=== PATIENT | female | born 1970 | race Caucasian/White ===

== ENCOUNTER 2017-08-22 17:16 | Inpatient (IN) | payer OTHER ==
[2017-08-22] MEDS ORDERED: HYDROmorphONE/DILAUDID 1 MG/ML INJ ONE (17:50)
[2017-08-22] MEDS ORDERED: HYDROmorphONE/DILAUDID 1 MG/ML INJ IVP ONE ×2 (17:52→20:48)
[2017-08-22 18:04] LABS: PLATELET COUNT 300 10^3/uL (150-400)
[2017-08-22] MEDS ORDERED: KETAMINE 200 MG/20 ML VIAL IVP ONE (18:11)
[2017-08-22] MEDS ORDERED: PANTOPRAZOLE SODIUM 40 MG VIAL IVP ONE (18:12)
--- NOTE | 2017-08-22 18:13 | EDPHY ---
H & P Time Seen by Provider: 08/22/17 17:57 HPI/ROS: CHIEF COMPLAINT: Abdominal pain HISTORY OF PRESENT ILLNESS: The patient is a 46 y/o female with a history of breast cancer who presents with epigastric pain, onset 9:30 AM, 8.5 hours ago. She had similar upper abdominal pain a few days ago which resolved with Pepto Bismol. She experienced a couple days of constipation which resolved this morning with a normal bowel movement. Onset of waxing and waning upper abdominal pain this morning. Around 4:30PM today, the pain worsened and has been severe and persistent since then. No associated sx and no allev/aggrev factors. She denies nausea, vomiting, diarrhea, or any other associated symptoms. No prior h/o gallstones, pancreatitis or PUD. REVIEW OF SYSTEMS: A 10 point review of systems was performed and is negative with the exception of the elements mentioned in the history of present illness. Past Medical/Surgical History: Breast cancer, Bilateral oophorectomy, bilateral mastectomy Social History: at bedside, non-smoker, no alcohol use Smoking Status: Former smoker Physical Exam: General Appearance: Alert, appears quite uncomfortable, requests speak for her Eyes: Pupils equal and round, no conjunctival pallor or injection ENT, Mouth: Mucous membranes moist Neck: Normal inspection Respiratory: Lungs are clear to auscultation Cardiovascular: Regular rate and rhythm Gastrointestinal: Abdomen is soft, moderate tenderness to palpation in epigastric and right upper quadrant, no peritoneal signs Neurological: A&O, nonfocal exam Skin: Warm and dry, no rash Extremities: Nontender, no pedal edema Psychiatric: Mood and affect normal Constitutional: Initial Vital Signs Temperature (C) 36.5 C 08/22/17 17:23 Heart Rate 96 08/22/17 17:23 Respiratory Rate 20 08/22/17 17:23 Blood Pressure 166/88 H 08/22/17 17:23 O2 Sat (%) 99 08/22/17 17:23 O2 Delivery Mode Room Air Allergies/Adverse Reactions: Sulfa (Sulfonamide Antibiotics) Allergy (Verified 08/22/17 17:22) Rash DAIRY Allergy (Uncoded 10/03/13 09:40) Home Medications: Medication Instructions Recorded Herbals/Supplements -Info Only 1 each PO AD 09/25/13 Levothyroxine Sodium 50 mcg PO DAILY 09/25/13 Liothyronine Sodium 6 mcg PO DAILY@13 08/22/17 Liothyronine Sodium 9 mcg PO DAILY@06 08/22/17 traMADol [Ultram 50 mg (*)] 50 mg PO Q6HRS PRN #20 tab 08/25/17 Medical Decision Making - Diagnostics Imaging Results: Abdomen Ultrasound 08/22/17 18:12 Impression: Normal. No cholelithiasis, biliary dilation, hydronephrosis, or free fluid. Findings discussed with Emergency Department physician, Shanice Rodriguez M.D., on August 22, 2017 at 2007. ED Course/Re-evaluation: The patient presents with severe epigastric pain onset this morning and worsening this afternoon. On exam she has tenderness in the upper right quadrant and epigastric regions and no peritoneal signs. Ketamine IV for pain control. Plan for labs with liver function and lipase and RUQ US. 7:00 p.m.-ultrasound in progress. Still complains of significant epigastric pain, though seems more comfortable after IV ketamine. Reglan and Benadryl IV given. 8:10 p.m.- Ultrasound was normal. Abd exam unchanged, continues to have significant pain. Plan for CT abd/pelvis. 8:25 p.m.- The patient continues to experience pain which has not improved with pain medication. Requests GI cocktail, given with no relief of pain. IV Dilaudid given with some relief. 8:53 p.m.- CT shows a small bowel obstruction, possibly secondary to an internal hernia vs volvulus. Results d/w pt and her . I consulted Dr. Fernandez, general surgery, regarding this patient. Dr Mota saw the pt in the ED and took her to the OR. Differential Diagnosis: Differential diagnosis includes though it is not limited to appendicitis, cholecystitis, diverticulitis, pyelonephritis, bowel perforation, small bowel obstruction. - Data Points Laboratory Results: Laboratory Results 08/22/17 17:45 08/22/17 17:45 Medications Given: Enoxaparin Sodium (Lovenox) 40 mg SC DAILY [facility] Stop: 02/19/18 08:59 Last Admin: 08/25/17 07:16 Dose: 40 mg Ertapenem (Invanz) 1 gm IV DAILY@0100 JASIEL PRN Reason: Protocol Stop: 09/21/17 23:44 Last Admin: 08/25/17 00:55 Dose: 1 gm Hydromorphone HCl (Dilaudid) 0.2 - 0.4 mg IVP Q1H PRN PRN Reason: Pain, Severe Unable to Take PO Stop: 09/01/17 23:32 Last Admin: 08/24/17 10:21 Dose: 0.2 mg Potassium Chloride/Dextrose/Sod Cl (D5w 1/2 Ns W/ 20 Kcl/L) 1,000 mls @ 100 mls /hr IV CONT JASIEL Stop: 02/18/18 23:44 Last Admin: 08/24/17 20:57 Dose: 1,000 mls Fluconazole/Sodium Chloride (Diflucan 2mg/Ml (Premix)) 100 mls @ 100 mls/hr IV DAILY [facility] Stop: 09/22/17 08:59 Last Admin: 08/25/17 08:05 Dose: 100 mls Ketorolac Tromethamine (Toradol) 15 mg IVP Q6HRS [facility] Stop: 08/29/17 08:14 Last Admin: 08/25/17 05:47 Dose: 15 mg Levothyroxine Sodium (Synthroid) 50 mcg PO DAILY JASIEL Stop: 02/19/18 08:59 Last Admin: 08/25/17 05:51 Dose: 50 mcg Miscellaneous Medication (Liothyronine Sodium) 6 mcg PO DAILY@13 [facility] Stop: 02/19/18 12:59 Last Admin: 08/24/17 12:42 Dose: 6 mcg Miscellaneous Medication (Liothyronine Sodium) 9 mcg PO DAILY@06 [facility] Stop: 02/20/18 05:59 Last Admin: 08/25/17 05:48 Dose: 9 mcg Tramadol HCl (Ultram) 50 mg PO Q6HRS PRN PRN Reason: Pain, Moderate Able to Take PO Stop: 02/20/18 12:31 Last Admin: 08/24/17 20:57 Dose: 50 mg Discontinued Medications Al Hydroxide/Mg Hydroxide (Maalox Susp) 30 ml PO ONCE ONE Stop: 08/22/17 19:35 Last Admin: 08/22/17 19:40 Dose: 30 ml Bupivacaine HCl (Sensorcaine 0.25% Sdv) Confirm Administered Dose 30 ml .ROUTE .STK-MED ONE Stop: 08/22/17 21:49 Last Admin: 08/22/17 23:08 Dose: Not Given Diphenhydramine HCl (Benadryl Injection) 25 mg IVP EDNOW ONE Stop: 08/22/17 20:27 Last Admin: 08/22/17 20:46 Dose: 25 mg Ertapenem (Invanz) 1 gm IV DAILY JASIEL PRN Reason: Protocol Stop: 09/21/17 23:44 Last Admin: 08/23/17 10:24 Dose: Not Given Hydromorphone HCl (Dilaudid) 1 mg IVP EDNOW ONE Stop: 08/22/17 17:53 Last Admin: 08/22/17 17:56 Dose: 1 mg Hydromorphone HCl (Dilaudid) 1 mg IVP EDNOW ONE Stop: 08/22/17 20:49 Last Admin: 08/22/17 20:58 Dose: 1 mg Hyoscyamine Sulfate (Levsin, Hyomax-Sl) 0.25 mg PO ONCE ONE Stop: 08/22/17 19:35 Last Admin: 08/22/17 19:39 Dose: 0.25 mg Sodium Chloride (Ns) 1,000 mls @ 0 mls/hr IV ONCE ONE; Wide Open PRN Reason: Protocol Stop: 08/22/17 18:23 Last Admin: 08/22/17 18:26 Dose: 1,000 mls Cefazolin Sodium/Dextrose (Ancef 2 Gm (Premix)) 100 mls @ 200 mls/hr IV EDNOW ONE PRN Reason: Protocol Stop: 08/22/17 21:45 Last Admin: 08/23/17 10:58 Dose: Not Given Cefazolin Sodium (Cefazolin Syringe) 2 gm in 20 mls @ 40 mls/hr IVP EDNOW ONE PRN Reason: Protocol Stop: 08/22/17 21:59 Last Admin: 08/22/17 22:20 Dose: 20 mls Lactated Ringer's (Lr) 1,000 mls @ 0 mls/hr IV ONCE ONE PRN Reason: KVO Stop: 08/22/17 21:46 Last Admin: 08/22/17 21:45 Dose: 1,000 mls Ketamine HCl (Ketamine) 10.9 mg 0.2 mg/kg (10.9 mg) IVP EDNOW ONE Stop: 08/22/17 18:12 Last Admin: 08/22/17 18:29 Dose: 10.9 mg Levothyroxine Sodium (Synthroid) 50 mcg PO DAILY JASIEL Stop: 02/19/18 08:59 Last Admin: 08/23/17 09:58 Dose: Not Given Lidocaine (Lidocaine 2% Viscous) 15 ml PO ONCE ONE Stop: 08/22/17 19:35 Last Admin: 08/22/17 19:40 Dose: 15 ml Metoclopramide HCl (Reglan Injection) 10 mg IVP EDNOW ONE Stop: 08/22/17 20:27 Last Admin: 08/22/17 20:48 Dose: 10 mg Pantoprazole Sodium (Protonix) 40 mg IVP EDNOW ONE Stop: 08/22/17 18:13 Last Admin: 08/22/17 18:24 Dose: 40 mg Scopolamine HBr (Scopolamine Patch) 1 patch TD Q24H ONE Stop: 08/22/17 22:00 Last Admin: 08/22/17 21:59 Dose: 1 patch Departure - Departure Disposition: To OP Cath/Surgery Clinical Impression: Bowel obstruction Qualifiers: Intestinal obstruction type: unspecified Intestinal obstruction extent: unspecified extent Qualified Code(s): K56.609 - Unspecified intestinal obstruction, unspecified as to partial versus complete obstruction Condition: Fair Report Scribed for: Shanice Rodriguez Report Scribed by: Candida Davey Date of Report: 08/22/17 Time of Report: 18:14 Physician Review and Approval Statement: 08/22/17 18:14 Portions of this note were transcribed by a medical i d sales. I personally performed a history, physical exam, medical decision making, and confirmed accuracy of information the transcribed note.
[2017-08-22] MEDS ORDERED: NS 1,000 ML IV ONE (18:22)
[2017-08-22] MEDS ORDERED: LIDOCAINE 2% VISCOUS 15 ML UDCUP PO ONE (19:34)
[2017-08-22] MEDS ORDERED: MAG HYDROX/AL HYDROX/SIMETH 30 ML UDCUP PO ONE (19:34)
[2017-08-22] MEDS ORDERED: HYOSCYAMINE SULFATE 0.125 MG TAB PO ONE (19:34)
[2017-08-22] MEDS ORDERED: IOPAMIDOL (ISOVUE-300) 100 ML BTL ONE (20:22)
[2017-08-22] MEDS ORDERED: METOCLOPRAMIDE 10 MG/2 ML VIAL IVP ONE (20:26)
[2017-08-22] MEDS ORDERED: ceFAZolin 2 GM/DEXTROSE 100 ML IV ONE (21:16)
[2017-08-22] MEDS ORDERED: ceFAZolin 2 GM/SWFI 2 GM/20 ML SYR IVP ONE (21:30)
[2017-08-22] MEDS ORDERED: LR 1,000 ML IV ONE (21:45)
[2017-08-22] MEDS ORDERED: BUPIVACAINE 0.25% 30 ML SDV ONE (21:48)
[2017-08-22] MEDS ORDERED: SCOPOLAMINE HYDROBROMIDE 1 MG/3 DAYS PATCH TD ONE ×2 (21:56→21:59)
--- NOTE | 2017-08-22 22:00 | PDANEPAE ---
ANE History of Present Illness volvulus ANE Past Medical History - Cardiovascular History Hx Hypertension: No Hx Arrhythmias: No Hx Coronary Artery / Peripheral Vascular Disease: No Hx CHF / Valvular Disease: No - Pulmonary History Hx COPD: No Hx Asthma/Reactive Airway Disease: No Hx Recent Upper Respiratory Infection: No Hx Oxygen in Use at Home: No Hx Sleep Apnea: No - Neurologic History Hx Cerebrovascular Accident: No Hx Seizures: No Hx Dementia: No - Endocrine History Hx Diabetes: No Endocrine History Comment: HYPOTHYROID - Renal History Hx Renal Disorders: No - Liver History Hx Hepatic Disorders: No - Neurological & Psychiatric Hx Hx Neurological and Psychiatric Disorders: Yes Neurological / Psychiatric History Comment: OCCASIONAL MIGRAINES. SITUATIONAL ANXIETY RELATED TO PRIOR HEALTH ISSUES - Cancer History Hx Cancer: Yes Cancer History Comment: BREAST - Congenital Disorder History Hx Congenital Disorders: No - GI History Hx Gastrointestinal Disorders: No - Other Health History Other Health History: NEG - Chronic Pain History Chronic Pain: No - Surgical History Prior Surgeries: 05/2012 PARTIAL THYROIDECTOMY FOR NODULE. 2006 PAULY MASTECTOMY FOR CA. 2006 BREAST RECONSTRUCTION. 2000 RT BREAST LUMPECTOMY WITH FULL LYMPH NODE DISSECTION. RT BREAST BX ANE Review of Systems Review of Systems: ANE Patient History - Allergies Allergies/Adverse Reactions: Sulfa (Sulfonamide Antibiotics) Allergy (Verified 08/22/17 17:22) Rash DAIRY Allergy (Uncoded 10/03/13 09:40) - Home Medications Home Medications: Herbals/Supplements -Info Only 1 each PO AD 09/25/13 [Last Taken Unknown] Levothyroxine Sodium 50 mcg PO DAILY 09/25/13 [Last Taken 08/22/17] Liothyronine Sodium 6 mcg PO DAILY@13 08/22/17 [Last Taken 08/22/17] Liothyronine Sodium 9 mcg PO DAILY@06 08/22/17 [Last Taken 08/22/17] - NPO status NPO Since - Liquids (Date): 08/22/17 NPO Since - Liquids (Time): 20:00 NPO Since - Solids (Date): 08/22/17 NPO Since - Solids (Time): 15:00 - Smoking Hx Smoking Status: Former smoker ANE Labs/Vital Signs - Labs Result Diagrams: 08/22/17 17:45 08/22/17 17:45 - Vital Signs Blood Pressure: 134/84 Heart Rate: 76 Respiratory Rate: 18 O2 Sat (%): 98 Height: 167.64 cm Weight: 54.431 kg ANE Physical Exam - Airway Neck exam: FROM Mallampati Score: Class 1 Mouth exam: normal dental/mouth exam - Pulmonary Pulmonary: no respiratory distress - Cardiovascular Cardiovascular: regular rate and rhythym - ASA Status ASA Status: II ANE Anesthesia Plan Anesthesia Plan: general endotracheal anesthesia
[2017-08-22] MEDS ORDERED: PROPOFOL/EMULSION 500 MG/50 ML BOTTLE IV ONE (22:03)
[2017-08-22] MEDS ORDERED: HYDROmorphONE/DILAUDID 2 MG/ML INJ ONE (22:03)
[2017-08-22] MEDS ORDERED: fentaNYL 100 MCG/2 ML INJ ONE ×2 (22:03)
[2017-08-22] MEDS ORDERED: PROPOFOL 200 MG/20 ML VIAL ONE (22:03)
--- NOTE | 2017-08-22 22:07 | GHP ---
[f rep st] HISTORY AND PHYSICAL DATE OF ADMISSION: 08/22/2017 CHIEF COMPLAINT: Abdominal pain. HISTORY OF PRESENT ILLNESS: Patient is a 46-year-old woman, with onset of epigastric pain this morning. She reports that she developed a gastrointestinal viral illness over the weekend after she was around her , who had similar symptoms. Her abdomen was sore. She had taken some Pepto- Bismol which causes constipation. She had a small bowel movement on Monday and today, she had a normal bowel movement, followed by a second bowel movement that was like angeline. She had some gas. However, starting this morning she developed abdominal pain that escalated coming in waves. Due to her pain escalating, she came to the emergency room. She denies vomiting. Her past surgical history is significant for laparoscopic oophorectomy. PAST MEDICAL HISTORY: BRCA 1 mutation breast cancer. PAST SURGICAL HISTORY: Bilateral mastectomy, reconstruction, port, port removal , bilateral oophorectomy, hemithyroidectomy. ALLERGIES: Sulfa Medications: Reconciled on [facility] SOCIAL HISTORY: at bedside. Does not currently use tobacco or alcohol. FAMILY HISTORY: Noncontributory. REVIEW OF SYSTEMS: A 10-point review of systems negative except per HPI. PHYSICAL EXAMINATION: VITAL SIGNS: 36.5, 82, 140/89, 16, 98%. GENERAL: Pleasant, well-nourished, thin woman lying on gurney, appears sleepy. HEENT: Normocephalic. No gross hearing deficits. Mucous membranes dry. Pupils equal and round. No scleral icterus. LUNGS: Clear to auscultation bilaterally. No increased work of breathing. CARDIAC: Regular rate. ABDOMEN: Bowel sounds hypoactive. She is tender, especially in the left upper quadrant and lower quadrant. No peritoneal signs. No midline incision. SKIN: Warm and dry. PSYCHIATRIC: Pleasant mood and affect normal, although sleepy. NEUROLOGIC: Grossly intact. IMPRESSION AND PLAN: A 46-year-old woman with abdominal pain. I personally reviewed her CT scan and there appears to be a closed loop obstruction. Her story is not typical for a closed loop obstruction. Her pain has improved after multiple medications in the ER. Despite having all these medications she is breaker machine tender and with the CT findings, this is not something that should be observed. She also had a large bladder on her CT scan and she has urinated since then. I will take her to the operating room for diagnostic laparoscopy, possible laparotomy possible adhesiolysis possible bowel resection. Risks and benefits, including, but not limited to, stroke, heart attack, , blood clots, infection, bleeding, possible leak, were all discussed. She requested her sign the informed consent. /[id number]/MODL MTDD
[2017-08-22] MEDS ORDERED: PROMETHAZINE HCL 25 MG/ML INJ IVP PRN ×2 (23:04→23:33)
[2017-08-22] MEDS ORDERED: NALOXONE HCL 0.4 MG/ML INJ IVP PRN (23:04)
[2017-08-22] MEDS ORDERED: ONDANSETRON 4 MG/2 ML VIAL IVP PRN ×2 (23:04→23:33)
[2017-08-22] MEDS ORDERED: fentaNYL 100 MCG/2 ML INJ IVP PRN (23:04)
[2017-08-22] MEDS ORDERED: HYDROmorphONE/DILAUDID 1 MG/ML INJ IVP PRN ×2 (23:04→23:33)
[2017-08-22] MEDS ORDERED: ONDANSETRON 4 MG/2 ML VIAL ONE (23:20)
[2017-08-22] MEDS ORDERED: PHENYLEPHRINE HCL 100 MCG/ML SYR ONE (23:20)
[2017-08-22] MEDS ORDERED: DEXAMETHASONE 4 MG/ML VIAL ONE (23:20)
[2017-08-22] MEDS ORDERED: LIDOCAINE 2% 5 ML SDV ONE (23:20)
[2017-08-22] MEDS ORDERED: SUGAMMADEX SODIUM 200 MG/2 ML VIAL IVP ONE (23:20)
--- NOTE | 2017-08-22 23:32 | POSTOPPROG ---
Post Op Note Date of Operation: 08/22/17 Surgeon: Carlyn Fernandez Anesthesiologist: lupe Anesthesia: GET(General Endotracheal) Pre-op Diagnosis: abdominal pain possible closed loop obstruction Post-op Diagnosis: same Indication: 46 yo with escalating abdominal pain Procedure: lap assisted small bowel resection Findings: necrotic bowel Inf/Abcess present in the surg proc area at time of surgery?: Yes Depth: Organ Space EBL: Minimal Specimen(s): fluid for micro and small bowel
--- NOTE | 2017-08-22 23:40 | POSTANESTH ---
Post Anesthetic Evaluation Cardiovascular Status: Normal, Stable Respiratory Status: Normal, Stable Level of Consciousness/Mental Status: Can Participate in Eval Pain Control: Adequate, Prn Tx Ordered Nausea/Vomiting Control: Adequate, Prn Tx Ordered Complications Possibly Related to Anesthesia: None Noted
[2017-08-23] MEDS: D5W 1/2 NS W/ 20 KCl/L 1,000 ML IV SCH ×3 (00:37→22:38)
[2017-08-23] MEDS: ERTAPENEM 1 GM VIAL IV SCH ×2 (00:37→10:24)
--- NOTE | 2017-08-23 01:32 | GOP ---
[f rep st] OPERATIVE REPORT DATE OF OPERATION: 08/22/2017 SURGEON: Carlyn Fernandez MD ANESTHESIA: General. ANESTHESIOLOGIST: Omkar Christianson MD. PREOPERATIVE DIAGNOSIS: Bowel obstruction. POSTOPERATIVE DIAGNOSIS: Closed loop bowel obstruction with necrotic bowel. PROCEDURE PERFORMED: Laparoscopic-assisted small bowel resection. FINDINGS: SPECIMENS: Peritoneal fluid for culture and small bowel for pathology. ESTIMATED BLOOD LOSS: 10 cc. INDICATIONS: The patient is a 46-year-old woman who had a GI virus over the weekend. Today, she had increasing abdominal pain that escalated. It did not respond well to narcotics. She had a CT scan that showed a possible closed loop obstruction. DESCRIPTION OF PROCEDURE: Patient was brought into the operating room, placed supine on the table. General anesthesia was administered. Her abdomen was prepped and draped in the usual sterile fashion . I infiltrated all sites with 0.5% Marcaine prior to making incision. I made an incision at her um bilicus. I elevated it. I inserted the Veress needle. Her abdomen passed the hanging drop test. H er abdomen insufflated easily to a pressure of 15 mmHg. I placed a 5 mm camera with a trocar at this site. There were no injuries from Veress needle placement. I explored her abdomen. I immediately saw dark fluid over the liver and a necrotic piece of small bowel. I examined the rest of her abdome n. There were no adhesions noted. It appeared that the mesentery was twisted. I placed a 10 mm tro car in her midline and I suctioned the fluid from above her liver, sent this for culture. I then rem eileen the trocars and I made a mini incision. I dissected down through the skin and subcutaneous tiss ue. I encountered the fascia. I divided this. I elevated and entered her peritoneal cavity. I favio irena an Demetrio wound protector. I was able to grasp the bowel and extracorporealized it. I ran it fr om the ligament of Treitz to the terminal ilium. The mesentery was twisted. I untwisted this. I th en aligned the bowel on the antimesenteric borders, selected points of transection. I stapled the li mbs closed with a ELYSE 75 blue load. I then divided the mesentery with the Harmonic and passed the sp ecimen off the field. Next, I closed the mesenteric defect with 3-0 Vicryl. I then made an enteroto my in each limb of the bowel creating a [id number] functional end-to-end anastomosis. The mucosa w as healthy. I milked back a lot of old blood. I closed the enterotomy with 3-0 Vicryl in 2 layers. I examined the anastomosis. It was widely patent. There were no obvious leaks. Again, the mesente ry was not twisted. I returned the bowel to the abdominal cavity. I closed the fascia with 0 PDS. I closed skin with 3-0 Vicryl followed by 4-0 Monocryl. Dermabond applied. She was awakened in the operating room, extubated, transferred to PACU in stable condition. /[id number]/MODL
[2017-08-23 05:54] LABS: PLATELET COUNT 236 10^3/uL (150-400)
[2017-08-23] MEDS: FLUCONAZOLE/NaCl 100 ML IV SCH (08:49)
[2017-08-23] MEDS: ENOXAPARIN 40 MG/0.4 ML SYR SC SCH (08:54)
[2017-08-23] MEDS ORDERED: LEVOTHYROXINE 50 MCG TAB PO SCH (09:00)
--- NOTE | 2017-08-23 09:21 | SOAPPROG ---
SOAP Progress Note Assessment/Plan: Assessment/Plan: 46yo F POD# 1 s/p laparoscopic small bowel resection with anastomosis. path and cultures pending NEURO - pain controlled with Dilaudid. Transition to PO when taking more PO. CARDIO - Hemodynamically stable. OK to d/c monitoring. RESP - No current issues, cont ambulation and IS GI - Continue scopolamine patch. Awaiting return of bowel function FEN - Continue NPO but may have 8oz clears q 8 hours. Continue IV fluids. HEME/ID - Continue Ertapenem and Fluconazole. Awaiting cultures. DVT ppx - Continue lovenox, scds and ambulation. ENDO - Hypothyroid. Continue home meds. Dispo - continue inpatient until return of bowel function. Seen c Dr. cano. S: Comfortable, sitting up in bed. Experiencing some slight bloating and soreness. No flatus. No nausea post-op which patient is extremely grateful for. O: Comfortable appearing and in no acute distress. RESP: CTAB. Normal breath sounds. CARDIO: RRR. No murmurs, rubs or gallops. ABD: Tender midabdomen. Soft and non-distended. Incision clean, dry and intact. Objective: Vital Signs Temp Pulse Resp BP Pulse Ox 36.9 C 72 18 112/68 98 08/23/17 08:00 08/23/17 08:00 08/23/17 08:00 08/23/17 08:00 08/23/17 04:00 Microbiology 08/22/17 22:38 Gram Stain - Final Peritoneal Fluid - Aspirate Laboratory Results 08/23/17 05:36 08/23/17 05:36 08/22/17 08/23/17 08/24/17 05:59 05:59 05:59 Intake Total 1950 470 Output Total 235 800 Balance 1715 -330 ICD10 Worksheet Patient Problems: Problems Problem Status Onset Bowel obstruction Acute
[2017-08-23] MEDS: HYDROmorphONE/DILAUDID 2 MG/ML INJ IVP PRN ×2 (10:05→14:20)
[2017-08-23] MEDS: LIOTHYRONINE SODIUM PO SCH (12:46)
--- NOTE | 2017-08-23 16:02 | ASMTCMCOM ---
CM Note CM Note Notes: Pt admitted w/bowel ostruction, went to surgery last night for this. Reviewed chart and discussed w/RN. Pt lives at home w/ and will likely dc home with him with no CM needs. Attempted to meet w/pt but sleeping. CM will follow for any changes/needs. Date Signed: 08/23/2017 04:01 PM Electronically Signed By:Karlene Burgos RN
[2017-08-24] MEDS: ERTAPENEM 1 GM VIAL IV SCH (01:13)
[2017-08-24] MEDS: LIOTHYRONINE SODIUM PO SCH ×2 (05:38→12:42)
[2017-08-24] MEDS: LEVOTHYROXINE 50 MCG TAB PO SCH (05:39)
[2017-08-24] MEDS: FLUCONAZOLE/NaCl 100 ML IV SCH (07:20)
[2017-08-24] MEDS: ENOXAPARIN 40 MG/0.4 ML SYR SC SCH (07:20)
[2017-08-24] MEDS: KETOROLAC 15 MG/1 ML SDV IVP SCH ×3 (08:14→18:21)
--- NOTE | 2017-08-24 08:47 | SOAPPROG ---
SOAP Progress Note Assessment/Plan: Assessment: sp sb resection/ alert/ afebrile/ mildly distended/ wound ok/ -flatus and decreased bs Plan:ambulate, ice chips 08/24/17 08:46 Objective: Vital Signs Temp Pulse Resp BP Pulse Ox 36.8 C 73 16 153/76 H 97 08/24/17 08:00 08/24/17 08:00 08/24/17 08:00 08/24/17 08:00 08/24/17 08:00 Microbiology 08/22/17 22:38 Gram Stain - Final Peritoneal Fluid - Aspirate Laboratory Results 08/23/17 05:36 08/23/17 05:36 08/23/17 08/24/17 08/25/17 05:59 05:59 05:59 Intake Total 1950 1709 Output Total 235 2100 500 Balance 8308 -466 -840 ICD10 Worksheet Patient Problems: Problems Problem Status Onset Bowel obstruction Acute
[2017-08-24] MEDS: HYDROmorphONE/DILAUDID 2 MG/ML INJ IVP PRN (10:21)
[2017-08-24] MEDS: traMADol 50 MG TAB PO PRN ×2 (12:44→20:57)
--- NOTE | 2017-08-24 13:51 | SOAPPROG ---
SOAP Progress Note Assessment/Plan: Assessment/Plan: 46yo F POD#2 s/p laparoscopic small bowel resection with anastomosis. Pathology with necrosis (no malignancy) Cultures NGTD NEURO - Changed pain meds to Toradol and Ultram Resp - Cough IS GI - Awaing bowel function to return FEN - Advance to clear liquid diet. HEME/ID - Continue Ertapenem and Fluconazole. Repeat CBC tomorrow. Awaiting final cultures. Likely will be short course and not require home IV abx DVT ppx - Continue lovenox, scds and ambulation. ENDO - Hypothyroid. Continue home meds. Dispo - continue inpatient until return of bowel function. S: Comfortable, sitting up in bed. Experiencing bloating and aching throughout abdomen with pressure at shoulders bilaterally. No flatus. O: Comfortable appearing and in no acute distress. RESP: CTAB. Normal breath sounds. CARDIO: RRR. No murmurs, rubs or gallops. ABD: Soft and non-distended. BS present. Incision clean, dry and intact. 08/24/17 13:51 08/24/17 13:52 08/24/17 15:16 08/24/17 15:16 Objective: Vital Signs Temp Pulse Resp BP Pulse Ox 37.6 C 58 L 16 130/70 H 94 08/24/17 11:06 08/24/17 11:06 08/24/17 11:06 08/24/17 11:06 08/24/17 11:06 Microbiology 08/22/17 22:38 Gram Stain - Final Peritoneal Fluid - Aspirate Laboratory Results 08/23/17 05:36 08/23/17 05:36 08/23/17 08/24/17 08/25/17 05:59 05:59 05:59 Intake Total 1950 1709 Output Total 235 5680 449 Balance 1159 -118 -149 ICD10 Worksheet Patient Problems: Problems Problem Status Onset Bowel obstruction Acute
[2017-08-24] MEDS: D5W 1/2 NS W/ 20 KCl/L 1,000 ML IV SCH (20:57)
[2017-08-25] MEDS: KETOROLAC 15 MG/1 ML SDV IVP SCH ×3 (00:55→11:52)
[2017-08-25] MEDS: ERTAPENEM 1 GM VIAL IV SCH (00:55)
[2017-08-25 05:37] LABS: PLATELET COUNT 170 10^3/uL (150-400)
[2017-08-25] MEDS: LIOTHYRONINE SODIUM PO SCH ×2 (05:48→12:54)
[2017-08-25] MEDS: LEVOTHYROXINE 50 MCG TAB PO SCH (05:51)
[2017-08-25] MEDS: ENOXAPARIN 40 MG/0.4 ML SYR SC SCH (07:16)
[2017-08-25] MEDS: FLUCONAZOLE/NaCl 100 ML IV SCH (08:05)
--- NOTE | 2017-08-25 08:26 | SOAPPROG ---
SOAP Progress Note Assessment/Plan: Assessment/Plan: 46yo F POD# 3 s/p laparoscopic small bowel resection with anastomosis. Cx NGTD. Path NEURO - pain controlled with PO meds - Ultram GI - Passing flatus. No BMs. Advance to regular diet HEME/ID -DC antibiotics, negative cx DVT ppx - lovenox, scds and ambulation. ENDO - Hypothyroid. Continue home meds. Dispo - home later today if tolerates regular diet. Seen c Dr. cano. S: Comfortable, laying in bed. Feeling much better today than yesterday. Pain well controlled c Ultram O: Comfortable appearing and in no acute distress. RESP: CTAB no increased WOB CARDIO: RRR ABD: Soft, nontender, nondistended. Incisions CDI Objective: Vital Signs Temp Pulse Resp BP Pulse Ox 36.6 C 53 L 14 132/71 H 97 08/25/17 07:58 08/25/17 07:58 08/25/17 07:58 08/25/17 07:58 08/25/17 07:58 Microbiology 08/22/17 22:38 Gram Stain - Final Peritoneal Fluid - Aspirate Laboratory Results 08/25/17 05:01 08/23/17 05:36 08/24/17 08/25/17 08/26/17 05:59 05:59 05:59 Intake Total 3019 321 2286 Output Total 2100 1900 Balance -391 -1325 1000 ICD10 Worksheet Patient Problems: Problems Problem Status Onset Bowel obstruction Acute
[2017-08-25 11:28] VITALS: RESP 16
[2017-08-25] MEDS: traMADol 50 MG TAB PO PRN (12:20)
[2017-08-25 15:29] VITALS: BP 129/74; PULSE 65; TEMP 98.8; O2SAT 94
--- NOTE | 2017-08-25 15:43 | GDS ---
[f rep st] DISCHARGE SUMMARY DATE OF ADMISSION: 08/22/17 DATE OF DIAGNOSIS: 08/25/17 ADMISSION DIAGNOSIS: Closed-loop small bowel obstruction with necrosis. SECONDARY DIAGNOSIS: 1. Hypothyroidism. 2. BRCA1 mutation status post bilateral mastectomy and oophorectomy. REASON FOR ADMISSION: Christelle is a 46-year-old woman who presented to the emergency room complaining of abdominal pain. Abdominal CT showed a closed loop small-bowel obstruction. Right upper quadrant ultrasound was negative for biliary etiology. She was admitted for emergent operative intervention, pain control and observations. HOSPITAL COURSE: She was taken emergently to the OR by Dr. Carlyn Fernandez for laparoscopic small-bowel resection. Necrotic bowel was found and resected as well as peritoneal fluid which was sent for culture. Cultures were negative growth to date at the time of discharge. Pathology revealed hemorrhagic and ischemic small bowel mucosa, minor serosal adhesions, negative for malignancy. She received IV Invanz and fluconazole pending culture results. She received DVT prophylaxis of Lovenox and SCDs. She was advanced to clear liquid diet on postoperative day 2. She began passing flatus on postoperative day 3 and was transitioned to a regular diet, which she tolerated.. She was transitioned to oral Ultram with adequate pain control. CONDITION: She is being discharged home in stable condition. Pain is controlled with oral pain medication, tolerating a regular diet and has full return of bowel function. DISCHARGE INSTRUCTIONS: No pushing, pulling, or lifting over 15 pounds for the next 6 weeks. She may shower. Avoid hot tubs, swimming pools or tub baths x2 weeks. Continue regular diet. She will follow up with Dr. Fernandez or Dora Shanks PA-C in 2 weeks. She will call with any worsening symptoms questions or concerns. DISCHARGE MEDICATIONS: She was sent home with a new prescription for Ultram. Continue home thyroid medications. Please see EMR for further detail /[id number]/MODL MTDD
[2017-08-25] MEDS ORDERED: PATCH REMOVAL 1 EA PATCH TD SCH (21:59)
== END 2017-08-25 16:52 | disposition home or self-care (01) | DRG 331 ==
LOC: F3E 08-23 00:09
PROVIDERS: ADMIT Surgery; ATTEND Surgery
PROC: 0DT84ZZ Resection of Small Intestine, Percutaneous Endoscopic Approach (ICD-10-PCS; principal; 2017-08-22 22:00)
DX: K56.609 Unspecified intestinal obstruction, unspecified as to partial versus complete obstruction (principal); E03.9 Hypothyroidism, unspecified; Z85.3 Personal history of malignant neoplasm of breast; Z90.13 Acquired absence of bilateral breasts and nipples; Z90.722 Acquired absence of ovaries, bilateral
CPT/HCPCS: J0690; J1100; J1170; J1200; J1335; J1450; J1650; J1885; J2370; J2405; J2704; J2765; J3010; Q9967

== ENCOUNTER 2017-09-28 06:02 | Emergency (ER) | payer OTHER ==
--- NOTE | 2017-09-28 06:18 | EDPHY ---
H & P Stated Complaint: Abd pain, surgery 5 weeks ago Source: Patient Exam Limitations: No limitations - Personal History LMP (Females 10-55): Hysterectomy Current Tetanus Diphtheria and Acellular Pertussis (TDAP): Yes - Medical/Surgical History Hx Asthma: No Hx Chronic Respiratory Disease: No Hx Diabetes: No Hx Cardiac Disease: No Hx Renal Disease: No Hx Cirrhosis: No Hx Alcoholism: No Hx HIV/AIDS: No Hx Splenectomy or Spleen Trauma: No Other PMH: breast cancer, marylou. mastectomy, partial thyroidectomy., ovaries removed, small bowel resection - Social History Smoking Status: Former smoker Time Seen by Provider: 09/28/17 06:15 HPI/ROS: HPI The patient presents with abdominal pain that began at about 9:30 p.m. Last night as she was going to bed. She ate a slightly larger dinner than usual last night, including a bowl of broccoli. She felt at 1st that the pain was gas pain. However, it became worse and since about 11:00 p.m. Last night, she was unable to sleep. She states the pain is a cramping sort of a pain that she feels in her mid abdomen that does not radiate. She says it waxes and wanes but never completely subsides. She rates it from a 6 to 8/10. She has not had a bowel movement or passed any gas since the pain began. Her last bowel movement was yesterday morning. She has not had any nausea or vomiting. She is status post resection of portion of her small bowel after she presented with a closed loop bowel obstruction several weeks ago. She has been doing well for the most part since her operation, however the other day had about 1 hr of pain which improved when she lie down. REVIEW OF SYSTEMS Constitutional: No fever, no chills. Eyes: No discharge. ENT: No sore throat. Cardiovascular: No chest pain, no palpitations. Respiratory: No cough, no shortness of breath. Gastrointestinal: Positive for abdominal pain, no vomiting. Genitourinary: No hematuria. Musculoskeletal: No back pain. Skin: No rashes. Neurological: No headache. PMHx: History of small-bowel obstruction, status post resection, history of hypothyroidism, history of BRCA 1 mutation with bilateral mastectomy and oophorectomy Soc Hx: Housed PHYSICAL General Appearance: Alert, no distress Eyes: Pupils equal and round no pallor or injection ENT, Mouth: Mucous membranes moist Respiratory: There are no retractions, lungs are clear to auscultation Cardiovascular: Regular rate and rhythm Gastrointestinal: Abdomen is soft , bowel sounds are quiet, patient has mild diffuse tenderness without any rebound or guarding Neurological: A&O, moves all extremities Skin: Warm and dry, no rashes Musculoskeletal: Neck is supple non tender Extremities: symmetrical, full range of motion Psychiatric: Patient is oriented X 3, there is no agitation (Chelsi Mcconnell) Constitutional: Initial Vital Signs Temperature (C) 36.7 C 09/28/17 06:03 Heart Rate 96 09/28/17 06:03 Respiratory Rate 18 09/28/17 06:03 Blood Pressure 111/65 09/28/17 06:03 O2 Sat (%) 96 09/28/17 06:03 O2 Delivery Mode Room Air Allergies/Adverse Reactions: Sulfa (Sulfonamide Antibiotics) Allergy (Verified 09/28/17 06:02) Rash DAIRY Allergy (Uncoded 10/03/13 09:40) Home Medications: Medication Instructions Recorded Herbals/Supplements -Info Only 1 each PO AD 09/25/13 Levothyroxine Sodium 50 mcg PO DAILY 09/25/13 Liothyronine Sodium 6 mcg PO DAILY@13 08/22/17 Liothyronine Sodium 9 mcg PO DAILY@06 08/22/17 traMADol [Ultram 50 mg (*)] 50 mg PO Q6HRS PRN #20 tab 08/25/17 Medical Decision Making Differential Diagnosis: This is a 47-year-old female who is about 5 weeks status post bowel resection for closed loop small bowel obstruction, suspected to be caused by scar tissue from her oophorectomy, now presenting with several hours of severe abdominal pain a so seated with obstipation. On arrival, vital signs are normal, she does have tenderness diffusely throughout her abdomen without any rebound or guarding. Differential diagnosis includes recurrent small bowel obstruction, constipation , less likely appendicitis. In the emergency department, IV line was established. The patient was given a dose of Toradol for pain per her request. Labs were ordered. At 640 a.m., the case was signed out to the oncoming provider Dr. John Suárez. Patient is waiting for remainder of labs and CT scan of abdomen. (Chelsi Mcconnell) Other Provider: Care assumed at 7:00 a.m.. Recent surgery for bowel obstruction. History of having a hysterectomy, test not indicated. Plan to check chemistry and LFTs, CT scan abdomen and pelvis. Surgeon is Dr. Carlyn Fernandez. Differential considered including but not limited to intestinal perforation, bowel obstruction, postoperative abscess, constipation or obstipation. 745: CT scan report by Dr. Cavanaugh shows no evidence of bowel obstruction or perforation or other acute abnormality, just postsurgical changes. Results discussed at this time. Reasonable to discharge the patient was symptomatic treatment. Abdomen soft and nontender at this time. Oral acetaminophen and/or ibuprofen for pain. Will try to avoid narcotics at this time. (John Suárez) - Data Points Laboratory Results: Laboratory Results 09/28/17 06:20 09/28/17 06:20 09/28/17 09/28/17 06:20 06:20 WBC 6.74 10^3/uL 10^3/uL (3.80-9.50) RBC 4.64 10^6/uL 10^6/uL (4.18-5.33) Hgb 14.0 g/dL g/dL (12.6-16.3) Hct 42.1 % % (38.0-47.0) MCV 90.7 fL fL (81.5-99.8) MCH 30.2 pg pg (27.9-34.1) MCHC 33.3 g/dL g/dL (32.4-36.7) RDW 13.1 % % (11.5-15.2) Plt Count 230 10^3/uL 10^3/uL (150-400) MPV 10.1 fL fL (8.7-11.7) Neut % (Auto) 73.7 % % (39.3-74.2) Lymph % (Auto) 17.5 % % (15.0-45.0) Hanson % (Auto) 7.3 % % (4.5-13.0) Eos % (Auto) 0.4 % L % (0.6-7.6) Baso % (Auto) 1.0 % % (0.3-1.7) Nucleat RBC Rel Count 0.0 % % (0.0-0.2) Absolute Neuts (auto) 4.96 10^3/uL 10^3/uL (1.70-6.50) Absolute Lymphs (auto) 1.18 10^3/uL 10^3/uL (1.00-3.00) Absolute Monos (auto) 0.49 10^3/uL 10^3/uL (0.30-0.80) Absolute Eos (auto) 0.03 10^3/uL 10^3/uL (0.03-0.40) Absolute Basos (auto) 0.07 10^3/uL 10^3/uL (0.02-0.10) Absolute Nucleated RBC 0.00 10^3/uL 10^3/uL (0-0.01) Immature Gran % 0.1 % % (0.0-1.1) Immature Gran # 0.01 10^3/uL 10^3/uL (0.00-0.10) Sodium 146 mEq/L H mEq/L (135-145) Potassium 4.1 mEq/L mEq/L (3.5-5.2) Chloride 108 mEq/L mEq/L (97-110) Carbon Dioxide 21 mEq/l L mEq/l (22-31) Anion Gap 17 mEq/L H mEq/L (8-16) BUN 18 mg/dL mg/dL (7-23) Creatinine 0.7 mg/dL mg/dL (0.6-1.0) Estimated GFR > 60 Glucose 115 mg/dL H mg/dL (70-100) Calcium 10.0 mg/dL mg/dL (8.5-10.4) Total Bilirubin 0.6 mg/dL mg/dL (0.1-1.4) AST 23 IU/L IU/L (14-46) ALT 29 IU/L IU/L (9-52) Alkaline Phosphatase 81 IU/L IU/L (38-126) Total Protein 8.2 g/dL g/dL (6.3-8.2) Albumin 4.9 g/dL g/dL (3.5-5.0) Lipase 32 IU/L IU/L (23-300) Medications Given: Discontinued Medications Hydromorphone HCl (Dilaudid) 1 mg IVP EDNOW ONE Stop: 09/28/17 07:03 Last Admin: 09/28/17 07:05 Dose: 1 mg Sodium Chloride (Ns) 1,000 mls @ 0 mls/hr IV EDNOW ONE; Wide Open PRN Reason: Protocol Stop: 09/28/17 06:30 Last Admin: 09/28/17 06:36 Dose: 1,000 mls Ketorolac Tromethamine (Toradol) 15 mg IVP EDNOW ONE Stop: 09/28/17 06:30 Last Admin: 09/28/17 06:37 Dose: 15 mg Departure - Departure Disposition: Home, Routine, Self-Care Clinical Impression: Abdominal pain Qualifiers: Abdominal location: generalized Qualified Code(s): R10.84 - Generalized abdominal pain Condition: Good Instructions: Acute Abdominal Pain (ED) Additional Instructions: CT does not show post-surgical complication or recurrent bowel obstruction. Increase oral fluids Return for worsening pain, vomiting, fever. Referrals: Maria Antonia Banda MD [Primary Care Provider] - As per Instructions Carlyn Fernandez MD [Medical Doctor] - As per Instructions
[2017-09-28 06:25] LABS: PLATELET COUNT 230 10^3/uL (150-400)
[2017-09-28] MEDS ORDERED: KETOROLAC 15 MG/1 ML SDV IVP ONE (06:29)
[2017-09-28] MEDS ORDERED: NS 1,000 ML IV ONE (06:29)
[2017-09-28] MEDS ORDERED: IOPAMIDOL (ISOVUE-300) 100 ML BTL ONE (06:49)
[2017-09-28] MEDS ORDERED: HYDROmorphONE/DILAUDID 2 MG/ML INJ IVP ONE (07:02)
[2017-09-28 07:55] VITALS: BP 135/75
[2017-09-28] MEDS ORDERED: ACETAMINOPHEN 325 MG TAB PO ONE (07:56)
[2017-09-28] MEDS ORDERED: ONDANSETRON DISINTEGRATING 4 MG TAB ONE (08:42)
[2017-09-28] MEDS ORDERED: ONDANSETRON DISINTEGRATING 4 MG TAB PO ONE (08:45)
== END 2017-09-28 08:46 | disposition home or self-care (01) ==
DX: R10.84 Generalized abdominal pain (principal); E86.9 Volume depletion, unspecified; Z85.3 Personal history of malignant neoplasm of breast; Z87.891 Personal history of nicotine dependence
CPT/HCPCS: 96374; J1170; J1885; Q9967